=== PATIENT | male | born 1965 | race Hispanic/Latino ===

== ENCOUNTER 2022-10-05 10:53 | Emergency (ER) | payer OTHER ==
[~2022-10-05] VITALS: Ht 162.6 cm; Wt 81.6 kg
[2022-10-05 12:24] LABS: BASOPHILS % (AUTO) 1.2 % (0.0-5.0); EOSINOPHILS % (AUTO) 7.3 % (0.0-8.0); HEMATOCRIT 39.4 % (42-54); LYMPHOCYTES % (AUTO) 18.7 % (21.0-51.0); MEAN CORPUSCULAR HEMOGLOBIN 30.4 pg (27.0-33.0); MEAN CORPUSCULAR VOLUME 89.3 fL (79-99); MONOCYTES % (AUTO) 7.1 % (3.0-13.0); NEUTROPHILS % (AUTO) 65.3 % (40.0-77.0); PLATELET COUNT (AUTO) 240 K/uL (130-400); RED BLOOD CELL COUNT(AUTO) 4.41 MIL/uL (4.50-6.20); RED CELL DISTRIBUTION WIDTH 12.1 % (11.0-15.5); WHITE BLOOD COUNT (AUTO) 5.1 K/uL (4.8-10.8)
[2022-10-05 13:52] LABS: ALBUMIN 3.8 g/dL (3.5-5.0); CREATININE 0.7 mg/dL (0.5-1.5); POTASSIUM 3.8 mmol/L (3.5-5.1); TOTAL PROTEIN, SERUM 7.7 g/dL (6.0-8.3)
[2022-10-05] MEDS ORDERED: CEPH500B PO (13:56)
[2022-10-05 14:28] VITALS: PULSE 75; RESP 20
[2022-10-05] MEDS ORDERED: HYDRALAZINE 20MG/ML VIAL ONE (14:30)
[2022-10-05] MEDS ORDERED: HYDRALAZINE HCL 10 MG TABLET ONE (14:30)
[2022-10-05] MEDS ORDERED: HYDRALAZINE HCL 10 MG TABLET PO SCH (15:00)
[2022-10-05] MEDS ORDERED: HYDRALAZINE 20MG/ML VIAL IM ONE (15:00)
[2022-10-05] MEDS ORDERED: LISINOPRIL 20 MG TABLET ONE (15:23)
[2022-10-05 15:29] VITALS: O2SAT 89
[2022-10-05] MEDS ORDERED: LISINOPRIL 20 MG TABLET PO ONE (15:30)
[2022-10-05 15:57] VITALS: BP 165/88
[2022-10-05] MEDS ORDERED: LISI20TA24 PO (16:02)
== END 2022-10-05 16:05 | disposition home or self-care (01) ==
LOC: EDH 10:53
DX: L03.119 Cellulitis of unspecified part of limb (principal); I10 Essential (primary) hypertension; E11.9 Type 2 diabetes mellitus without complications; E78.00 Pure hypercholesterolemia, unspecified; M19.072 Primary osteoarthritis, left ankle and foot; Z79.899 Other long term (current) drug therapy; Z98.890 Other specified postprocedural states
CPT/HCPCS: 99284; 80053; 85025; 83605; 36415; 73630; 96372; J0360